=== PATIENT | male | born 1965 | race Caucasian/White ===

== ENCOUNTER 2022-08-17 13:35 | Emergency (ER) | payer OTHER, SELFPAY ==
--- NOTE | ~2022-08-17 | XR_ITS ---
EXAMINATION: XR FOREARM, LEFT CLINICAL INFORMATION: Left forearm soft tissue injury with chainsaw. COMPARISON: None TECHNIQUE: AP and lateral views of the left forearm were obtained. FINDINGS: Significant soft tissue deformity seen at the level the mid forearm. No radiopaque foreign body. The underlying radius and ulna are intact. There is no acute fracture or dislocation. The left wrist and elbow joints are intact without abnormality. XR/XR forearm LT 2V IMPRESSION: Significant soft tissue deformity in the mid forearm without acute underlying osseous abnormality.
--- NOTE | 2022-08-17 13:39 | ED.GENADULT ---
HPI - General Adult General Chief complaint: Extremity Injury, Upper <Loena Rasmussen MD - Last Filed: 08/17/22 13:42> Stated complaint: Chainsaw Lac <Leona Rasmussen MD - Last Filed: 08/17/22 13:42> Time Seen by Provider: 08/17/22 13:44 <Leona Rasmussen MD - Last Filed: 08/17/22 13:42> Source: patient and EMS <MESSI Machado - Last Filed: 08/17/22 18:05> Mode of arrival: EMS <MESSI Machado - Last Filed: 08/17/22 18:05> Limitations: no limitations <MESSI Machado - Last Filed: 08/17/22 18:05> History of Present Illness HPI narrative: Patient is a 57 year old assigned male at with no reported medical history presenting to the emergency department today with a left forearm laceration from a chainsaw. Patient states that he was attempting to cut a tree in his yard with a chainsaw when it jerked back and caught his left forearm. Patient states that he cannot extend his left pinky and he has numbness and tingling in his left hand. Patient denies any dizziness, lightheadedness, abdominal pain, nausea, vomiting, fever, chills, blurry vision, double vision, loss of vision, chest pain, difficulty breathing, shortness of breath, back pain, night sweats, pain with urination, increased urinary frequency, increased urinary urgency, blood in his urine or stool, syncope or a near syncopal episode, bowel incontinence, bladder incontinence, bowel retention, bladder retention, or any other complaints at this time. <MESSI Machado - Last Filed: 08/17/22 18:05> Onset (ago): minute(s) <MESSI Machado - Last Filed: 08/17/22 18:05> Location: left and upper extremity <MESSI Machado - Last Filed: 08/17/22 18:05> Radiation: non-radiation <MESSI Machado - Last Filed: 08/17/22 18:05> Severity: severe <MESSI Machado - Last Filed: 08/17/22 18:05> Severity scale (1-10): 10 <MESSI Machado - Last Filed: 08/17/22 18:05> Quality: aching <MESSI Machado - Last Filed: 08/17/22 18:05> Pain Consistency: constant <MESSI Machado - Last Filed: 08/17/22 18:05> Relieving factors: none <MESSI Machado - Last Filed: 08/17/22 18:05> Exacerbating factors: none <MESSI Machado - Last Filed: 08/17/22 18:05> Associated symptoms: denies other symptoms <MESSI Machado - Last Filed: 08/17/22 18:05> Treatments prior to arrival: none <MESSI Machado - Last Filed: 08/17/22 18:05> Related Data Home medications: Previous Rx's Medication Instructions Recorded cephalexin 500 mg capsule 500 mg PO Q6H 7 days #28 caps 08/17/22 <Leona Rasmussen MD - Last Filed: 08/17/22 13:42> Allergies/adverse reactions: Allergies Allergy/AdvReac Type Severity Reaction Status Date / Time No Known Allergies Allergy Verified 08/17/22 13:50 <Leona Rasmussen MD - Last Filed: 08/17/22 13:42> Review of Systems Constitutional: Constitutional: Reports no additional constitutional complaints, Denies chills, Denies fever(s) and Denies night sweats <MESSI Machado - Last Filed: 08/17/22 18:05> Eyes: Eyes: Reports no additional eye complaints, Denies blurry vision, Denies change in vision, Denies diplopia, Denies eye discharge, Denies loss of vision and Denies eye pain <MESSI Machado - Last Filed: 08/17/22 18:05> ENT: Denies dizziness <MESSI Machado - Last Filed: 08/17/22 18:05> Cardiovascular: Cardiovascular: Reports no additional cardiovascular complaints, Denies chest pain, Denies lightheadedness, Denies Loss of Consciousness and Denies dyspnea <MESSI Machado - Last Filed: 08/17/22 18:05> Respiratory: Respiratory: Reports no additional respiratory complaints and Denies dyspnea <MESSI Machado - Last Filed: 08/17/22 18:05> Gastrointestinal: Gastrointestinal: Reports no additional gastrointestinal complaints, Denies abdominal pain, Denies melena, Denies hematochezia, Denies change in bowel habits and Denies change in stool character <MESSI Machado - Last Filed: 08/17/22 18:05> Genitourinary: Genitourinary: Reports no additional male genitourinary complaints, Denies hematuria, Denies oliguria, Denies difficulty urinating, Denies dysuria, Denies urinary frequency, Denies urinary hesitancy, Denies urinary incontinence and Denies urinary urgency <MESSI Machado - Last Filed: 08/17/22 18:05> Musculoskeletal: Musculoskeletal: Reports no additional musculoskeletal complaints, Denies numbness and Denies tingling <MESSI Machado - Last Filed: 08/17/22 18:05> Comments: left forearm laceration <MESSI Machado - Last Filed: 08/17/22 18:05> Neurologic: Denies dizziness, Denies loss of vision, Denies numbness and Denies tingling <MESSI Machado - Last Filed: 08/17/22 18:05> Psychiatric: Psychiatric: Reports no additional psychiatric complaints <MESSI Machado - Last Filed: 08/17/22 18:05> Endocrine: Endocrine: Reports no additional endocrine complaints <MESSI Machado - Last Filed: 08/17/22 18:05> Hematologic/Lymphatic: Hematologic/Lymphatic: Reports no additional hematologic/lymphatic complaints <MESSI Machado - Last Filed: 08/17/22 18:05> Allergic/Immunologic: Allergic/Immunologic: Reports no additional allergic/immunologic complaints <MESSI Machado - Last Filed: 08/17/22 18:05> PMFSH Past Medical History Attestation statement: The following information was validated with the patient. <MESSI Machado - Last Filed: 08/17/22 18:05> Source: old records reviewed <MESSI Machado - Last Filed: 08/17/22 18:05> Social History Social History: Social History Advance Directives: No <Leona Rasmussen MD - Last Filed: 08/17/22 13:42> Physical Exam ED Vital Signs: Vital Signs - 24 hr 08/17/22 13:42 08/17/22 14:01 Pulse Rate 88 Respiratory Rate 24 H 18 Blood Pressure 107/70 Pulse Oximetry 98 Oxygen Delivery Method Room Air BMI result Body Mass Index 32.5 <Leona Rasmussen MD - Last Filed: 08/17/22 13:42> Vital Signs - 24 hr 08/17/22 13:42 08/17/22 14:01 Pulse Rate 88 Respiratory Rate 24 H 18 Blood Pressure 107/70 Pulse Oximetry 98 Oxygen Delivery Method Room Air BMI result Body Mass Index 32.5 <MESSI Machado - Last Filed: 08/17/22 18:05> Const General: cooperative, no acute distress, alert and awake <MESSI Machado - Last Filed: 08/17/22 18:05> Nutritional Appearance: well nourished <MESSI Machado - Last Filed: 08/17/22 18:05> Orientation/consciousness: patient oriented x3 <MESSI Machado - Last Filed: 08/17/22 18:05> Limitations: no limitations <MESSI Machado - Last Filed: 08/17/22 18:05> HENMT Head: Yes normal to inspection and Yes atraumatic <MESSI Machado - Last Filed: 08/17/22 18:05> Ears: hearing grossly normal bilaterally and external ears normal <MESSI Machado Last Filed: 08/17/22 18:05> General nose exam: Normal external nose present, no nasal discharge noted and no epistaxis <MESSI Machado - Last Filed: 08/17/22 18:05> Face and sinus: Yes normal facial exam, No abrasion and No laceration <MESSI Machado - Last Filed: 08/17/22 18:05> Mouth: Normal oral and palatal mucosa present, no drooling and no muffled voice <MESSI Machado - Last Filed: 08/17/22 18:05> Eyes General: appearance normal, both eyes and all related structures <MESSI Machado Last Filed: 08/17/22 18:05> Periorbital: periorbital findings normal <MESSI Machado Last Filed: 08/17/22 18:05> Eyelids: Yes eyelids normal <Zaynab Fong PA - Last Filed: 08/17/22 18:05> Conjunctivae: conjunctivae normal <Zaynab Fong PA - Last Filed: 08/17/22 18:05> Pupils: Equal, round and reactive pupils present <Zaynab Fong PA - Last Filed: 08/17/22 18:05> EOM: EOMs intact bilaterally <Zaynab Fong PA - Last Filed: 08/17/22 18:05> Neck Neck: Yes normal visual inspection, Yes full ROM and Yes no lymphadenopathy <Zaynab Fong PA - Last Filed: 08/17/22 18:05> Chest Chest palpation & inspection: normal inspection of the chest <Zaynab Fong CT - Last Filed: 08/17/22 18:05> Resp Effort & Inspection: normal respiratory effort and able to speak in complete sentences <Zaynab Fong CT - Last Filed: 08/17/22 18:05> Auscultation: clear to auscultation bilaterally <Zaynab Fong PA - Last Filed: 08/17/22 18:05> Cardio Rate: regular rate <Zaynab Fong PA - Last Filed: 08/17/22 18:05> Rhythm: regular rhythm <Zaynab Fong PA - Last Filed: 08/17/22 18:05> GI Inspection: Yes normal to inspection <Zaynab Fong CT - Last Filed: 08/17/22 18:05> Neuro General: patient oriented x3 and moves all extremities <Zaynab Fong PA - Last Filed: 08/17/22 18:05> Cranial nerves: Yes Equal, round and reactive pupils present <Zaynab Fong PA - Last Filed: 08/17/22 18:05> Cognition (Neuro): normal cognition <Zaynab FongMESSI - Last Filed: 08/17/22 18:05> Motor exam (neuro): 5/5 motor strength present throughout <Zaynab FongMESSI - Last Filed: 08/17/22 18:05> Sensory Exam: Normal double simultaneous stimulation for sensation <Zaynab Fong PA - Last Filed: 08/17/22 18:05> Coordination: [id number] test normal <MESSI Machado - Last Filed: 08/17/22 18:05> Extrem Other: <MESSI Machado - Last Filed: 08/17/22 18:05> General: No full ROM (cannot extend left 5th digit, numbness and tingling present to left hand) and Yes capillary refill normal <MESSI Machado - Last Filed: 08/17/22 18:05> Psych Appearance: grossly normal <MESSI Machado - Last Filed: 08/17/22 18:05> Mental Status: mental status grossly normal <MESSI Machado - Last Filed: 08/17/22 18:05> Affect: normal affect <MESSI Machado - Last Filed: 08/17/22 18:05> Attitude: cooperative <MESSI Machado - Last Filed: 08/17/22 18:05> Thought process: Normal thought process present <MESSI Machado - Last Filed: 08/17/22 18:05> Thought content: Normal thought content present <MESSI Machado - Last Filed: 08/17/22 18:05> Insight: Good insight present (Psych) <MESSI Machado - Last Filed: 08/17/22 18:05> Course Course Course Narrative: -triage -pt c/o lac with a chain saw for L forearm -pt pale, diaphoretic, likely vasovagal, lac is deep, minimal to moderate active bleeding, pt unwilling to try to open/close hand at this time -pt sent to [facility] [place] <Leona Rasmussen MD - Last Filed: 08/17/22 13:42> Medications Administered Discontinued Medications Generic Name Dose Route Start Last Admin Trade Name Freq PRN Reason Stop Dose Admin Diphtheria/Tetanus/Acell Pertussis 0.5 ml 08/17/22 14:01 08/17/22 14:28 Diphth,Pertus(Acell),Tet Adult 0.5 Ml Syringe IM 08/17/22 14:02 0.5 ml .ONCE ONE Administration Piperacillin Sod/Tazobactam 50 mls @ 100 mls/hr 08/17/22 13:50 08/17/22 15:29 Sod 3.375 gm/ Sodium Chloride IV 08/17/22 14:19 Infused ONCE ONE Infusion Sodium Chloride 1,000 mls @ 999 mls/hr 08/17/22 14:45 08/17/22 16:13 Ns IV 08/17/22 15:45 Infused .Q1H1M JANI Infusion Lidocaine HCl 20 ml 08/17/22 14:43 08/17/22 15:07 Lidocaine Hcl 1 % Mpf 5 Ml Vial SUBCUT 08/17/22 14:44 20 ml ONCE ONE Administration Morphine Sulfate 4 mg 08/17/22 13:50 08/17/22 14:01 Morphine Sulfate 4 Mg/Ml Cartridge IVPUSH 08/17/22 13:51 4 mg ONCE ONE Administration Protocol Ondansetron HCl 4 mg 08/17/22 13:50 08/17/22 13:58 Ondansetron Hcl 4 Mg/2 Ml Vial IVPUSH 08/17/22 13:51 4 mg ONCE ONE Administration <Leona Rasmussen MD - Last Filed: 08/17/22 13:42> Medications Administered Discontinued Medications Generic Name Dose Route Start Last Admin Trade Name Diogoq PRN Reason Stop Dose Admin Diphtheria/Tetanus/Acell Pertussis 0.5 ml 08/17/22 14:01 08/17/22 14:28 Diphth,Pertus(Acell),Tet Adult 0.5 Ml Syringe IM 08/17/22 14:02 0.5 ml .ONCE ONE Administration Piperacillin Sod/Tazobactam 50 mls @ 100 mls/hr 08/17/22 13:50 08/17/22 15:29 Sod 3.375 gm/ Sodium Chloride IV 08/17/22 14:19 Infused ONCE ONE Infusion Sodium Chloride 1,000 mls @ 999 mls/hr 08/17/22 14:45 08/17/22 16:13 Ns IV 08/17/22 15:45 Infused .Q1H1M JANI Infusion Lidocaine HCl 20 ml 08/17/22 14:43 08/17/22 15:07 Lidocaine Hcl 1 % Mpf 5 Ml Vial SUBCUT 08/17/22 14:44 20 ml ONCE ONE Administration Morphine Sulfate 4 mg 08/17/22 13:50 08/17/22 14:01 Morphine Sulfate 4 Mg/Ml Cartridge IVPUSH 08/17/22 13:51 4 mg ONCE ONE Administration Protocol Ondansetron HCl 4 mg 08/17/22 13:50 08/17/22 13:58 Ondansetron Hcl 4 Mg/2 Ml Vial IVPUSH 08/17/22 13:51 4 mg ONCE ONE Administration <MESSI Machado - Last Filed: 08/17/22 18:05> Procedures Laceration Laceration 1: Site: upper extremity <MESSI Machado - Last Filed: 08/17/22 18:05> Side (If applicable): left <MESSI Machado - Last Filed: 08/17/22 18:05> Size (cm): 8 <MESSI Machado - Last Filed: 08/17/22 18:05> Description: irregular and contaminated <MESSI Machado - Last Filed: 08/17/22 18:05> Depth: involves muscle layer and involves tendon <MESSI Machado - Last Filed: 08/17/22 18:05> Local Anesthetic: lidocaine 1% <MESSI Machado - Last Filed: 08/17/22 18:05> Amount of anesthesia used (mL): 20 <MESSI Machado - Last Filed: 08/17/22 18:05> Pre-repair: wound explored and irrigated extensively <MESSI Machado - Last Filed: 08/17/22 18:05> Skin layer closed with: other (prolene) <MESSI Machado - Last Filed: 08/17/22 18:05> Size (cm): 4-0 <MESSI Machado - Last Filed: 08/17/22 18:05> Number of sutures: 10 <MESSI Machado - Last Filed: 08/17/22 18:05> Technique: simple, interrupted <MESSI Machado - Last Filed: 08/17/22 18:05> Medical Decision Making MDM Narrative Medical decision making narrative: Patient is a 57 year old assigned male at with no reported medical history presenting to the emergency department today with a left forearm laceration. Patient's physical exam showed a large chainsaw laceration to the left forearm involving multiple layers with evidence of ulnar nerve involvement with decreased left 5th finger movement and sensation. Patient's blood work showed an elevated CR of 2.04 and after a liter of fluids, decreased to 1.52. Patient's left forearm x-ray showed no acute fredi process. I explained my physical exam findings as well as all test results to the patient and the patient's son. I answered all questions asked by the patient and the patient's son. I spoke with Dr. Loja who examined the patient and recommended that the patient have his outer most layer sutured closed and follow up in the office in the next 48 hours with possible surgery to be scheduled on of this week. Patient's laceration was repaired, without incident. I stressed the importance of the patient taking his medication as prescribed. I stressed the importance of the patient following up with his primary care provider and the orthopedic surgeon. I stressed the importance of the patient returning to the emergency department immediately if his symptoms were to worsen or if he were to develop any dizziness, shortness of breath, difficulty breathing, chest pain, blurry vision, loss of vision, nausea, vomiting, abdominal pain, fever, chills, back pain, or any other complaints. Patient and the patient's son verbalized agreement and understanding with this treatment plan and discharge. <MESSI Machado - Last Filed: 08/17/22 18:05> Medical Records Medical records reviewed: Yes I reviewed the patient's medical records. <MESSI Machado - Last Filed: 08/17/22 18:05> Lab Data Lab results reviewed: Yes I reviewed the patient's lab results. <MESSI Machado - Last Filed: 08/17/22 18:05> Result diagrams: : 08/17/22 13:58 08/17/22 17:30 <Leona Rasmussen MD - Last Filed: 08/17/22 13:42> Labs: Lab Results 08/17/22 08/17/22 08/17/22 Range/Units 13:58 13:58 17:30 WBC 10.9 H (4.8-10.8) X10*3/uL RBC 5.00 (4.60-5.80) X10*6/uL Hgb 15.1 (14.0-18.0) g/dl Hct 43.3 (42.0-52.0) % MCV 86.6 (80.0-98.0) fL MCH 30.2 (27.0-33.0) pg MCHC 34.9 (31.0-36.0) g/dl RDW 12.0 (11.0-16.0) % Plt Count 303 (160-400) X10*3/uL MPV 10.0 (9.4-12.4) fL Immature Gran % (Auto) 0.3 (0.0-0.4) % Neut % (Auto) 59.2 (45-73) % Lymph % (Auto) 31.4 (20-40) % Trego % (Auto) 7.6 (2-11) % Eos % (Auto) 1.0 (0-4) % Baso % (Auto) 0.5 (0-2) % Lymph # (Auto) 3.4 (1.2-4.9) X10*3/uL Trego # (Auto) 0.8 (0.1-1.2) X10*3/uL Eos # (Auto) 0.1 (0.0-0.4) X10*3/uL Baso # (Auto) 0.1 (0.0-0.2) X10*3/uL Abs Immat Gran (auto) 0.03 (0.00-0.03) X10*3/uL Absolute Neuts (auto) 6.5 (2.0-8.3) x10*3/uL Absolute Nucleated RBC 0.000 (0.0-0.012) X10*3/uL Nucleated RBC % (auto) 0.0 (0.0-0.2) /100WBC Sodium 145 142 (135-145) mmol/L Potassium 3.7 4.0 (3.3-5.1) mmol/L Chloride 109 H 107 (96-108) mmol/L Carbon Dioxide 17 L 21 L (22-29) mmol/L Anion Gap 23 H 18 (12-20) BUN 20 H 20 H (9-16) mg/dL Creatinine 2.04 H 1.52 H (0.5-1.4) mg/dL Estim Creat Clear Calc 45.1 60.5 Estimated GFR 34 48 Random Glucose 241 H 83 (60-115) mg/dL Calcium 10.1 9.7 (8.4-10.2) mg/dL Total Bilirubin 0.5 0.5 (0.0-1.0) mg/dL AST 20 24 (5-37) U/L ALT 26 26 (0-40) U/L Alkaline Phosphatase 41 39 (39-117) U/L Total Protein 7.1 6.8 (6.5-8.0) g/dL Albumin 4.6 4.4 (3.5-5.0) g/dL <Leona Rasmussen MD - Last Filed: 08/17/22 13:42> Lab Results 08/17/22 08/17/22 08/17/22 Range/Units 13:58 13:58 17:30 WBC 10.9 H (4.8-10.8) X10*3/uL RBC 5.00 (4.60-5.80) X10*6/uL Hgb 15.1 (14.0-18.0) g/dl Hct 43.3 (42.0-52.0) % MCV 86.6 (80.0-98.0) fL MCH 30.2 (27.0-33.0) pg MCHC 34.9 (31.0-36.0) g/dl RDW 12.0 (11.0-16.0) % Plt Count 303 (160-400) X10*3/uL MPV 10.0 (9.4-12.4) fL Immature Gran % (Auto) 0.3 (0.0-0.4) % Neut % (Auto) 59.2 (45-73) % Lymph % (Auto) 31.4 (20-40) % Trego % (Auto) 7.6 (2-11) % Eos % (Auto) 1.0 (0-4) % Baso % (Auto) 0.5 (0-2) % Lymph # (Auto) 3.4 (1.2-4.9) X10*3/uL Trego # (Auto) 0.8 (0.1-1.2) X10*3/uL Eos # (Auto) 0.1 (0.0-0.4) X10*3/uL Baso # (Auto) 0.1 (0.0-0.2) X10*3/uL Abs Immat Gran (auto) 0.03 (0.00-0.03) X10*3/uL Absolute Neuts (auto) 6.5 (2.0-8.3) x10*3/uL Absolute Nucleated RBC 0.000 (0.0-0.012) X10*3/uL Nucleated RBC % (auto) 0.0 (0.0-0.2) /100WBC Sodium 145 142 (135-145) mmol/L Potassium 3.7 4.0 (3.3-5.1) mmol/L Chloride 109 H 107 (96-108) mmol/L Carbon Dioxide 17 L 21 L (22-29) mmol/L Anion Gap 23 H 18 (12-20) BUN 20 H 20 H (9-16) mg/dL Creatinine 2.04 H 1.52 H (0.5-1.4) mg/dL Estim Creat Clear Calc 45.1 60.5 Estimated GFR 34 48 Random Glucose 241 H 83 (60-115) mg/dL Calcium 10.1 9.7 (8.4-10.2) mg/dL Total Bilirubin 0.5 0.5 (0.0-1.0) mg/dL AST 20 24 (5-37) U/L ALT 26 26 (0-40) U/L Alkaline Phosphatase 41 39 (39-117) U/L Total Protein 7.1 6.8 (6.5-8.0) g/dL Albumin 4.6 4.4 (3.5-5.0) g/dL <MESSI Machado - Last Filed: 08/17/22 18:05> Imaging Data Left forearm x-ray: Attestation: I personally reviewed and interpreted this imaging study as follows: <MESSI Machado - Last Filed: 08/17/22 18:05> My impression: No acute fredi process. <MESSI Machado - Last Filed: 08/17/22 18:05> Radiologist's impression: EXAMINATION: XR FOREARM, LEFT CLINICAL INFORMATION: Left forearm soft tissue injury with chainsaw.? COMPARISON: None? TECHNIQUE: AP and lateral views of the left forearm were obtained. FINDINGS: Significant soft tissue deformity seen at the level the mid forearm. No radiopaque foreign body. The underlying radius and ulna are intact. There is no acute fracture or dislocation. The left wrist and elbow joints are intact without abnormality. XR/XR forearm LT 2V IMPRESSION: Significant soft tissue deformity in the mid forearm without acute underlying osseous abnormality. Dictated By: Richar Jarrett MD Signed By: Electronically signed by Richar Jarrett MD 08/17/22 1512 <MESSI Machado - Last Filed: 08/17/22 18:05> Critical Care Time Critical Care Time Critical Care Time: Yes <MESSI Machado - Last Filed: 08/17/22 18:05> Total Critical Care Time: 45 <MESSI Machado - Last Filed: 08/17/22 18:05> Attestation: I spent 45 minutes of Critical Care Time with this patient. This does not include time spent on separately reported billable procedures. <MESSI Machado - Last Filed: 08/17/22 18:05> Discharge Plan Discharge Clinical Impression: Laceration of left forearm, Acute dehydration <Leona Rasmussen MD - Last Filed: 08/17/22 13:42> Patient Disposition: Home, Self-Care <Leona Rasmussen MD - Last Filed: 08/17/22 13:42> Instructions: Dehydration (ED), Laceration (ED) <Leona Rasmussen MD - Last Filed: 08/17/22 13:42> Additional Instructions: Your initial creatinine today was 2.04 and after 1 liter of fluids, it came down to 1.52. Continue to drink fluids and have your primary care provider follow up on your creatinine level. Follow up with your primary care provider and the orthopedic provider. Return to the emergency department immediately if your symptoms worsen or if you develop any dizziness, shortness of breath, difficulty breathing, chest pain, blurry vision, loss of vision, nausea, vomiting, abdominal pain, fever, chills, back pain, or any other complaints. <Leona Rasmussen MD - Last Filed: 08/17/22 13:42> Prescriptions: New cephalexin 500 mg capsule 500 mg PO Q6H 7 Days Qty: 28 0RF <Leona Rasmussen MD - Last Filed: 08/17/22 13:42> Referrals: [facility] [place] Family Medicine [Provider Group] (Call to establish and follow up with a primary care provider. If you already have a primary care provider, please follow up with them. ) [facility] [place] Primary Care, [place] [Provider Group] (Call to establish and follow up with a primary care provider. If you already have a primary care provider, please follow up with them. ) [facility] [place] Primary Care,[facility] [Provider Group] (Call to establish and follow up with a primary care provider. If you already have a primary care provider, please follow up with them. ) [facility] [place] [facility] [Provider Group] (Call to establish and follow up with Dr. Loja, the hand surgeon who saw you today. ) <Leona Rasmussen MD - Last Filed: 08/17/22 13:42> Stand Alone Forms: Work/School Release <Leona Rasmussen MD - Last Filed: 08/17/22 13:42> Print Language: Armenian <Leona Rasmussen MD - Last Filed: 08/17/22 13:42>
[2022-08-17 13:42] VITALS: BP 107/70; PULSE 88; RESP 24; O2SAT 98; BMI 32.5
[2022-08-17] MEDS: ondansetron HCL 4 MG/2 ML VIAL IVPUSH (13:58)
[2022-08-17 14:01] VITALS: RESP 18
[2022-08-17] MEDS: Morphine Sulfate 4 MG/ML CARTRIDGE IVPUSH (14:01)
[2022-08-17 14:04] LABS: MANUAL DIFF FLAG NO
[2022-08-17 14:06] LABS: Basophils Absolute Auto 0.1 X10*3/uL (0.0-0.2); Basophils Percent Auto 0.5 % (0-2); Eosinophils Absolute Auto 0.1 X10*3/uL (0.0-0.4); Hematocrit 43.3 % (42.0-52.0); Hemoglobin 15.1 g/dl (14.0-18.0); Imm Gran Abs Auto 0.03 X10*3/uL (0.00-0.03); Imm Gran Pct Auto 0.3 % (0.0-0.4); Lymphocytes Absolute Auto 3.4 X10*3/uL (1.2-4.9); Lymphocytes Percent Auto 31.4 % (20-40); Mean Corpuscular HGB Conc 34.9 g/dl (31.0-36.0); Mean Corpuscular Hemoglobin 30.2 pg (27.0-33.0); Mean Corpuscular Volume 86.6 fL (80.0-98.0); Monocytes Absolute Auto 0.8 X10*3/uL (0.1-1.2); Monocytes Percent Auto 7.6 % (2-11); Neutrophils Absolute Auto 6.5 x10*3/uL (2.0-8.3); Neutrophils Percent Auto 59.2 % (45-73); Platelet Count 303 X10*3/uL (160-400); White Blood Count 10.9 X10*3/uL (4.8-10.8)
[2022-08-17 14:28] LABS: Alanine Aminotransferase 26 U/L (0-40); Albumin Level 4.6 g/dL (3.5-5.0); Alkaline Phosphatase 41 U/L (39-117); Anion Gap 23 (12-20); Aspartate Amino Transferase 20 U/L (5-37); Bilirubin Total 0.5 mg/dL (0.0-1.0); Blood Urea Nitrogen 20 mg/dL (9-16); Calcium 10.1 mg/dL (8.4-10.2); Carbon Dioxide 17 mmol/L (22-29); Chloride 109 mmol/L (96-108); Creatinine Clr Calc Pharmacy 45.1; Estimated Glomerular Filt Rate 34; Glucose Random 241 mg/dL (60-115); Potassium 3.7 mmol/L (3.3-5.1); Sodium 145 mmol/L (135-145); Total Protein 7.1 g/dL (6.5-8.0)
[2022-08-17] MEDS: Diphth,Pertus(ACell),Tet Adult 0.5 ML SYRINGE IM (14:28)
[2022-08-17] MEDS: Piperacillin Sodium/Tazobactam 3.375 GM in 0.9 % Sodium Chloride 50 ML IV (14:49)
[2022-08-17] MEDS: Lidocaine HCl 1 % MPF 5 ML VIAL 20 ML SUBCUT (15:07)
[2022-08-17] MEDS: 0.9 % Sodium Chloride 1,000 ML 999 ML IV (15:07)
--- NOTE | 2022-08-17 15:12 | PM.CNOR ---
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 He was using a chain saw today when it got away from him and struck him in the left mid forearm. He complains of pain and a good-sized gash in the volar ulnar aspect of his left mid forearm. He also complains of some numbness in his hand. He is seen today with his young adult son. He denies having any heart, lung, kidney problems, asthma or diabetes. [facility] Social History Social History Advance Directives: No Meds Allergies Allergy/AdvReac Type Severity Reaction Status Date / Time No Known Allergies Allergy Verified 08/17/22 13:50 Active Medications: Current Medications Sodium Chloride (Ns) 1,000 mls @ 999 mls/hr IV .Q1H1M JANI Stop: 08/17/22 15:45 Last Admin: 08/17/22 15:07 Dose: 999 mls/hr Physical Exam Vital Signs: Vital Signs: Last Vital Signs Pulse 88 08/17/22 13:42 Resp 18 08/17/22 14:01 BP 107/70 08/17/22 13:42 Pulse Ox 98 08/17/22 13:42 O2 Del Method 08/17/22 13:42 BMI result Body Mass Index 32.5 Const: General: cooperative and healthy appearing Orientation/consciousness: oriented to person and oriented to place HEENT: Head: Yes normocephalic and Yes atraumatic Eyes: EOM: EOMs intact bilaterally Resp: Effort & Inspection: normal respiratory effort and able to speak in complete sentences Cardio: Jugular venous distension: no JVD Skin: General skin exam: turgor normal Rashes: no rashes Neuro: General: oriented to person and oriented to place Extrem: Other: Evaluation of Left Upper Extremity: He has got an approximately 10 cm long transverse laceration across the volar ulnar mid forearm. The ulnar half of the laceration appears to by a late the volar forearm fascia and likely the FCU muscle belly. No significant active bleeding his fingers are pink and warm. With encouragement I can get him to extend his fingers about 80% of the way before limited by pain in the forearm. However, he has more of an extensor lag in the ring and small fingers . he appears to have active FDP and FDS tendon function to all of the fingers and can bring his fingers closed to week fist. Sensation is intact and normal to the thumb index middle finger and radial half of the ring finger. He feels like the small finger ulnar half of the ring finger and ulnar aspect of the hand are asleep. When asked to finger cross on the left he could bring the middle and index fingers together but not fully cross them. This could also be the median innervated intrinsics at work. Radiographs: three views of the left forearm Show no fractures or dislocations.. There is clearly a soft tissue injury in the volar ulnar mid forearm. No foreign bodies are seen. Psych: Appearance: grossly normal Affect: normal affect Attitude: cooperative Results Labs Result Diagrams: 08/17/22 13:58 08/17/22 13:58 Labs: Abnormal lab results 08/17/22 08/17/22 Range/Units 13:58 13:58 WBC 10.9 H (4.8-10.8) X10*3/uL Chloride 109 H (96-108) mmol/L Carbon Dioxide 17 L (22-29) mmol/L Anion Gap 23 H (12-20) BUN 20 H (9-16) mg/dL Creatinine 2.04 H (0.5-1.4) mg/dL Random Glucose 241 H (60-115) mg/dL H & H 08/17/22 Range/Units 13:58 Hgb 15.1 (14.0-18.0) g/dl Hct 43.3 (42.0-52.0) % All other labs normal. Assessment and Plan (1) Laceration of left forearm: Status: Acute (2) Laceration of muscle of left forearm: Status: Acute (3) Laceration of ulnar nerve of left upper extremity at forearm level: Status: Acute Plan assessment and plan: 1. Left volar ulnar mid forearm laceration from a chainsaw 2. This appears to also involve the ulnar nerve at the mid forearm, and also the FCU muscle belly I educated the patient about this condition I discussed operative and non operative treatment options, and and recommending operative treatment for a washout, wound exploration, and likely microscopic repair /reconstruction of the ulnar nerve and other structures as necessary. He will be put on the OR schedule for me for later this week. This needs to go to the OR within the next few days The ED is going to wash out the wound and loosely close it, splint him and put him on some oral antibiotics. Procedures Date of Service Date of Service: 08/17/22
[2022-08-17 17:53] LABS: Alanine Aminotransferase 26 U/L (0-40); Albumin Level 4.4 g/dL (3.5-5.0); Alkaline Phosphatase 39 U/L (39-117); Anion Gap 18 (12-20); Aspartate Amino Transferase 24 U/L (5-37); Bilirubin Total 0.5 mg/dL (0.0-1.0); Blood Urea Nitrogen 20 mg/dL (9-16); Calcium 9.7 mg/dL (8.4-10.2); Carbon Dioxide 21 mmol/L (22-29); Chloride 107 mmol/L (96-108); Creatinine Clr Calc Pharmacy 60.5; Estimated Glomerular Filt Rate 48; Glucose Random 83 mg/dL (60-115); Sodium 142 mmol/L (135-145); Total Protein 6.8 g/dL (6.5-8.0)
== END 2022-08-17 18:34 | disposition home or self-care (01) ==
PROVIDERS: Physician Assistant Medical; Emergency Provider Emergency Medicine Emergency Medical Services
DX: S54.02XA Injury of ulnar nerve at forearm level, left arm, initial encounter (principal); S56.922A Laceration of unspecified muscles, fascia and tendons at forearm level, left arm, initial encounter; S51.812A Laceration without foreign body of left forearm, initial encounter; W29.3XXA Contact with powered garden and outdoor hand tools and machinery, initial encounter; E86.0 Dehydration; Y93.H9 Activity, other involving exterior property and land maintenance, building and construction; Y92.017 Garden or yard in single-family (private) house as the place of occurrence of the external cause; Y99.9 Unspecified external cause status
CPT/HCPCS: 12034; 29125; 36415; 73090; 80053; 85025; 90471; 90715; 96361; 96365; 96375; 99283; 99284; J2270; J2405; J2543

== ENCOUNTER 2022-08-20 06:04 | Day surgery (SDC) | payer OTHER, SELFPAY ==
--- NOTE | 2022-08-19 09:31 | HO.ANESPROP2 ---
Documented by User: Dianne Horta NP 08/19/22 09:33 HPI - Anesthesia Eval Consult details Narrative: 57yo M for Left I&D forearm, Ulna Nerve Repair Forearm, Fascia Muscle Repair Forearm PMFSH Active Problems Active Problems: All Active Problems (Updated 08/18/22 @ 00:02 by Nola Coelho) Laceration of ulnar nerve of left upper extremity at forearm level (Acute) Laceration of muscle of left forearm (Acute) Laceration of left forearm (Acute) Past Medical History Medical History (Updated 08/20/22 @ 08:50 by Dee Guerrier MD) Heartburn Surgical History Surgical History (Updated 08/20/22 @ 08:49 by Dee Guerrier MD) H/O colonoscopy Social History Social History Patient Tobacco Use Status: Never used Tobacco Second Hand Smoke Exposure: No Use of substances other than those prescribed or required for medical reasons: No Are you DNR?: No Advance Directives: No Advance Directives Information Provided: Yes Advance Directives on File: No Current occupation: construction self employed, rt hand Meds Allergies Allergy/AdvReac Type Severity Reaction Status Date / Time No Known Allergies Allergy Verified 08/18/22 12:59 Home Medications Medication Instructions Recorded Confirmed Last Taken Type hydrocortisone acetate 25 mg 25 mg PA BID 08/18/22 Unknown History rectal suppository (Anucort-HC) acetaminophen 650 mg tablet 650 mg PO Q6H PRN Pain 08/20/22 08/20/22 08/20/22 History omeprazole 20 mg capsule,delayed 20 mg PO DAILY 08/20/22 08/20/22 08/20/22 History release Exam Exam Date and Time: August 19, [id number] Pertinent Lab Results Pertinent Lab Results: Laboratory Tests 08/17/22 08/17/22 13:58 17:30 WBC 10.9 H Hgb 15.1 Hct 43.3 Plt Count 303 Sodium 142 Potassium 4.0 Chloride 107 Carbon Dioxide 21 L BUN 20 H Creatinine 1.52 H Assessment and Plan Assessment Anesthesia Assessment: Chart Reviewed Documented by User: Dee Guerrier MD 08/20/22 08:52 [facility] Past Medical History Medical History (Updated 08/20/22 @ 08:50 by Dee Guerrier MD) Heartburn Family History Family history of problems with anesthesia: No Surgical History Surgical History (Updated 08/20/22 @ 08:49 by Dee Guerrier MD) H/O colonoscopy History of Problems with Anesthesia: No Social History Social History Patient Tobacco Use Status: Never used Tobacco Second Hand Smoke Exposure: No Use of substances other than those prescribed or required for medical reasons: No Are you DNR?: No Advance Directives: No Advance Directives Information Provided: Yes Advance Directives on File: No Current occupation: construction self employed, rt hand Meds Allergies Allergy/AdvReac Type Severity Reaction Status Date / Time No Known Allergies Allergy Verified 08/18/22 12:59 Home Medications Medication Instructions Recorded Confirmed Last Taken Type hydrocortisone acetate 25 mg 25 mg PA BID 08/18/22 Unknown History rectal suppository (Anucort-HC) acetaminophen 650 mg tablet 650 mg PO Q6H PRN Pain 08/20/22 08/20/22 08/20/22 History omeprazole 20 mg capsule,delayed 20 mg PO DAILY 08/20/22 08/20/22 08/20/22 History release Exam Height,Weight and Vital Signs: Height 5 ft 8 in Weight 92.986 kg Vital Signs Temp Pulse Resp BP Pulse Ox O2 Del Method 08/20/22 06:35 97.4 F 68 16 132/92 H 97 Room Air Airway Mallampati Class: II TM Dist: >3cm Neck ROM: Full Loose/Missing/Broken Teeth: Yes (Missing molars. Denies broken or loose teeth) Heart: RRR Lungs: CTAB Assessment and Plan Assessment Anesthesia Assessment: Anesthesia Plan Discussed Final Anesthetic Review Family History of Problems with Anesthesia: No History of Problems with Anesthesia: No NPO: Yes ASA Class: II Final Preanesthetic Review: No Changes in Pt Med Stat, Meds/Allgs Chart Reviewed, Consent Obtained/Reviewed and Anes Risks/Benef Reviewed Patient Risk: Low Procedure Risk: Low Assessment/Block/Sedation in SS: Assess/Block/Sedation-SS Anesthetic Plan Anesthetic Plan: GA Disposition: Standard PACU
[2022-08-20] VITALS (11 sets, daily range): BP systolic 119–138; BP diastolic 66–92; PULSE 68–87; RESP 16–18; TEMP 36.3–36.9; O2SAT 91–97; BMI 31.1
--- NOTE | ~2022-08-20 | XR_ITS ---
EXAMINATION: XR FOREARM, LEFT CLINICAL INFORMATION: Incorrect count. COMPARISON: Left forearm radiographs dated 08/17/2022. TECHNIQUE: AP and lateral views of the left forearm were obtained. FINDINGS: Again seen is significant soft tissue deformity in the mid, lateral aspect of the forearm. No radiopaque foreign body in this region. The underlying radius and ulna are intact. A curvilinear radiopaque density overlies the soft tissues superficial to the first metacarpal. Mild to moderate triscaphe degenerative joint changes are seen. XR/XR forearm LT 2V IMPRESSION: 1. Significant soft tissue wound in the forearm as seen previously without associated radiopaque foreign body. No acute underlying osseous abnormality. 2. Curvilinear radiopaque density overlying the soft tissues superficial to the first metacarpal. This likely represents a radiopaque foreign body of indeterminate age. Correlate with physical exam and trauma history in this region. No acute underlying abnormality.
[2022-08-20] MEDS: Lactated Ringers 1,000 ML 100 ML IVCONT (06:36)
--- NOTE | 2022-08-20 12:59 | P.OP_ITS ---
Operative Note Operative Note Date of Service: 08/20/22 Narrative: Operative Note Narrative: Preop diagnosis: 1. Left volar forearm transverse laceration from a chainsaw, approximately 11 cm 2. Left ulnar nerve laceration Postop diagnosis: 1. Left volar forearm transverse laceration from a chainsaw, approximately 11 cm 2. Left ulnar nerve laceration? 3. Left flexor carpi ulnaris tendon and muscle belly laceration 4. Partial laceration of flexor digitorum superficialis to the ring finger, tendon and muscle belly 5. Partial laceration of flexor digitorum superficialis to the left middle finger, tendon and muscle belly 6. Laceration of palmaris longus Procedure: 1. Neurolysis of ulnar nerve in the mid forearm 2. Repair of ulnar nerve in the mid forearm using a conduit and loupe magnification, 1 cm gap 3. Repair of left flexor carpi ulnaris muscle and tendon in the forearm 4. Repair of left ring finger flexor digitorum superficialis tendon 5. Repair of left middle finger flexor digitorum superficialis tendon Surgeon: Mariela Loja MD Anesthesia: General Anesthesia Findings: large transverse forearm laceration is noted above. This included lacerations of the palmaris longus and FCU tendons and muscle bellies. The fascia was on injured over the FCR tendon and the FCR tendon and muscle belly were on injured. There was a partial laceration of the flexor digitorum superficialis muscle bellies with tendon involvement to the left ring and middle fingers. There appeared to be in injury to the ulnar artery in the zone of injury with some clotting evident in the area of injury. There was no bleeding from the artery. It Was not disturbed. the ulnar nerve was fully transected in the zone of injury and where it was directly adjacent to the ulnar artery. The nerve proximal to the laceration appear to be in pretty good condition. The nerve distal to the transection was more injured and required resection of approximately 5 mm. The flexor digitorum profundus did not appear to be injured. The wound appeared to be relatively clean and with no evidence of obvious infection Or debris. Implants: 5 mm inner diameter [employer] neuro flex nerve conduit. Tourniquet time: 120 minutes EBL: 5.0 ml Specimen: none Drains: None Complications: None Disposition: Brought to the recovery room in stable condition Plan: Follow-up in 10-14 days for wound check anticipate suture removal in 2-3 weeks depending on wound healing continue antibiotics until finished he should be placed in a short-arm cast with the wrist in perhaps 10 degrees of flexion. Indications: The patient is a [age] year old man with a change saw injury to the volar aspect of his left forearm deficient of ulnar nerve function . The risks and benefits of operative treatment, including but not limited to risk of damage to blood vessels, nerves, tendons, infection, recurrence, persistent pain or numbness, incomplete resolution of preoperative symptoms, or need for further surgery were discussed with the patient and they wished to p roceed with surgery. Procedure: Once consent was obtained patient was brought back to the operating suite and placed in the operating table in a supine position. . Perioperative antibiotics and anesthesia was administered by the anesthesia team. A tourniquet was applied to the proximal aspect of the left upper extremity and the limb was prepped and draped in a standard surgical fashion. The limb was elevated exsanguinated with Esmarch bandage and the tourniquet inflated to 250 mm of mercury for a total tourniquet time of 120 minutes. I made longitudinal incisions extending from the transverse laceration distally about 5 cm and proximally about 5 cm. This was done with a 15. Blade through the skin to the subcutaneous tissues. Then carefully dissected down to the level of the volar forearm fascia using tenotomy scissors. The volar forearm fascia was then incised longitudinally using tenotomy scissors. In evaluating the wound, it was clean and without evidence of gross infection or debris. it was approximately 11 cm in length and a little jagged, from the chain saw. The more radial aspect of the volar forearm fascia appeared to be intact. The underlying flexor carpi radialis tendon and muscle belly were on a jerk. The palmaris longus tendon was transected and then the laceration proceeded deeply in an ulnar direction. The flexor carpi ulnaris muscle belly and tendon were transected. There was a partial injury to the flexor digitorum superficialis involving the muscle bellies and then also the tendons to the ring and middle fingers. The ulnar nerve and artery were identified essentially deep to the flexor carpi ulnaris, just deep and ulnar to the flexor digitorum superficialis and superficial to the flexor digitorum profundus which did not appear to be injured. The ulnar nerve and artery were in direct contact with each other in this area. the ulnar artery was appreciated along its length. There was a clotted area in the zone of injury. As his hand has been well perfused I elected to leave this area alone so as not to disturb it. The ulnar Nerve was noted to be fully transected in the zone of injury. a neurolysis was performed mobilizing the ulnar nerve from the surrounding tissues including the ulnar artery for a distance of about 2 cm proximal and distal to the laceration site. This was done very carefully with tenotomy scissors. The wound was copiously irrigated with normal saline multiple times. Again the proximal end of the lacerated ulnar nerve appeared to be in fairly good condition and perhaps a mm was taken off this proximal and 2 fraction the nerve in preparation for repair. The more distal aspect of the transected ulnar nerve did not look as good. It was more contused and I needed to remove about 5 mm from this part of the ulnar nerve. I dropped the tourniquet at I believe 78 minutes just to be assured that we would not have any significant new bleeding from the ulnar artery. The ulnar artery appear to be doing well and without any significant bleeding. The limb was then again elevated exsanguinated the tourniquet again inflated before we began our nerve repair. I then chose a [employer] 5 mm inner diameter neuro flex nerve conduit. This was prepared as per instructions on the back table. I was able to cut it down to approximately 1.2 cm in length to bridge the gap without any tension. Using my loupes and micro instruments I then repaired 1st the proximal and into the neuro flex conduit using 7 0 Prolene suture. Taking care to properly orient the proximal and distal aspect of the ulnar nerve I then repaired the distal and of the ulnar nerve into the neuro flex conduit also using 7 0 Prolene suture. This appeared to be a good repair and without tension. I then turned my attention to the flexor carpi ulnaris tendon and muscle belly. I repaired the tendon using some 3-0 Ethibond suture material. This was done holding the wrist in a flexed position. We had a nice reapproximation of the cut tendon ends. I then repaired the flexor digitorum superficialis tendon to the ring finger as well as the flexor digitorum superficialis tendon to the middle finger, also with some 3-0 Ethibond suture and some 5 0 Prolene. These were partial injuries. I elected not to repair the palmaris longus tendon as it was not necessary and the proximal end of the palmaris longus was not identifiable, and would have required extending the incision proximally to find it. Once satisfied with my repairs the wound was again copiously irrigated with normal saline. The skin and subcutaneous edges were debrided of any nonviable tissue. At this point the tourniquet was deflated and hemostasis obtained with a brief period of local pressure and bipolar electrocautery. The wound was copiously irrigated with normal saline. The subcutaneous layer was closed with 4-0 Vicryl suture, and the skin edges were reapproximated with 4-0 nylon suture. The wound was infiltrated with some 0.5% plain ropivacaine for postop pain control and a sterile dressing and a dorsal blocking splint holding the wrist in about 15 degrees of flexion was placed. The patient appears to have tolerated the procedure well and with no complications. All digits were well vascularized conclusion of the case.
--- NOTE | 2022-08-20 12:59 | MHC.SHP ---
Pre-Procedural Eval Section A Date of Service: 08/20/22 The patient is an INPATIENT: No Changes since office visit: No Cold of Flu in the past 2 weeks, No New Medical Problems, No Changes in Medication and No Patient answered all questions The History & Physical has been completed within 30 days and I have reviewed it.: Yes Section B Chief Complaint: laceration of forearm Allergies: Allergies Allergy/AdvReac Type Severity Reaction Status Date / Time No Known Allergies Allergy Verified 08/18/22 12:59 Plan I have reviewed the history and physical and performed a pertinent physical examination on my patient. No changes have occurred unless specified.
[2022-08-20] MEDS: oxyCODONE HCl Immed Release 5 MG TABLET PO (13:17)
[2022-08-20] MEDS: Ondansetron ODT 4 MG TAB.RAPDIS TRANSLINGU (14:25)
--- NOTE | 2022-08-20 14:37 | PC.NURSE ---
PATIENT GIVEN ZOFRAN SL PRIOR TO DISCHARGE FOR NAUSEA. PATEINT STATES FEELING BETTER AFTER VOMITING AND RECEIVING ZOFRAN.
== END 2022-08-20 14:45 | disposition home or self-care (01) ==
PROVIDERS: Visit Provider Orthopaedic Surgery
PROC: (CPT 64910; principal; 2022-08-20 07:30)
PROC: (CPT 64910; 2022-08-20 07:30)
PROC: (CPT 64910; 2022-08-20 07:30)
DX: S51.812A Laceration without foreign body of left forearm, initial encounter (principal); S54.02XA Injury of ulnar nerve at forearm level, left arm, initial encounter; S66.121A Laceration of flexor muscle, fascia and tendon of left index finger at wrist and hand level, initial encounter; R20.0 Anesthesia of skin; R20.2 Paresthesia of skin; W29.3XXA Contact with powered garden and outdoor hand tools and machinery, initial encounter; Y93.H3 Activity, building and construction; Y92.69 Other specified industrial and construction area as the place of occurrence of the external cause; Y99.0 Civilian activity done for income or pay; R12 Heartburn; Z79.899 Other long term (current) drug therapy
CPT/HCPCS: 64910; 64718; 64727; 25260 ×3; 73090; C9355; J0690; J1100; J1170; J2250; J2405; J2795; J3010

== ENCOUNTER → 2022-09-23 12:06 | Outpatient (BNVA) | payer OTHER, SELFPAY | PROVIDERS: Visit Provider Orthopaedic Surgery | DX: S51.812A Laceration without foreign body of left forearm, initial encounter (principal) ==

== ENCOUNTER 2022-10-08 13:00 | Outpatient (RCR) | payer OTHER, SELFPAY ==
--- NOTE | 2022-09-03 07:05 | MHC.OT.EP ---
[address] [phone] Occupational Therapy Plan of Care Date of Evaluation: 09/02/22 Diagnosis: Left ulnar nerve laceration and repair Left mid forearm FCU and FDS laceration and repair Assessment: 57 yo male was trimming trees, chainsaw slipped and laceration to left forearm occurred. He was brought to the ED and assessed by Dr Loja, scheduled for I&D and repair. 08/20/22 he underwent I&D w/ ulnar nerve repair at mid forearm and FDS and FCU tendon/muscle repair. He has been seen by Dr Loja today for two week post-op follow up, sutures removed, dorsal block splint placed w/ digits free and referred to OT for custom block orthosis. We assessed him in hand therapy today, fabricated dorsal block orthosis w/ wrist to neutral and digits free. He has been educated on repair protection and has good understanding not to extend wrist past neutral. He states he has been educated on digit ROM exercises and we have reinforced in therapy today and given handout for digit ROM/tendon glides, advising submaximal digit composite extension. We will continue OT services here at [facility] [place], he will be traveling and has limited insurance visits, but is motivated and encouraged w/ current state. Frequency and Duration: The patient will be seen ESCOBAR Blake/Ashley LOWERY Short Term Goals: Ind w/ orthosis wear Good follow through w/ wound/incision cleanliness Pt to demo good understanding w/ initiation of soft tissue management/scar management Pt to demo active digit range tip-palm Penal Officer Goals: Wean from orthosis wear Full active digit flex and ext Full active wrist ROM all planes WNL Pt to demo light functional use of left hand w/ bimanual activities Ind w/ ulnar nerve re-ed Treatment Plan: Therapeutic Exercise Therapeutic Activity Home Exercise Program Splinting Neuro Re-ed Patient Education Desensitization/Sensory Re-ed Edema Control ADL Training Ultrasound Paraffin Fluidotherapy MHP Soft Tissue Mobilization Kinesiotaping Electronically Signed By: ESCOBAR Blake/Ashley LOWERY Please Sign and return to therapist. Thank you once again for your referral.
--- NOTE | 2022-09-17 12:34 | MHC.OT.OP ---
[address] [phone] F: [phone] Occupational Therapy Progress Note Diagnosis: Left ulnar nerve laceration and repair Left mid forearm FCU and FDS laceration and repair Date of Surgery: 08/20/22 Date of Evaluation: 09/02/22 Treatments to Date: 2 Cancellations to Date: No Shows to Date: Subjective: Pt reports missing last appointment due to a schedule conflict. Removing DBS when sitting around the house Pain Score: Pain Location: No c/o pain Objective Measures: 2 PD ulnar hand and ulnar forearm 1 pt and moving touch only Hot/cold discrimination impaired MMT thumb add Fair, dorsal interossi Trace,palmar interossi Trace, lumbricals Trace Status: Assessment: Pt reports compliance with his HEP. Pt educated on precautions, scar massage, and ther ex Significant motor and sensory impairments as noted above Slight clawing noted today , not noted on eval. Pt will benefit from a anti claw orthosis after he weans from the DBS ~ at wk 6 with MD authorization Short Term Goals: Ind w/ orthosis wear Good follow through w/ wound/incision cleanliness Pt to demo good understanding w/ initiation of soft tissue management/scar management Pt to demo active digit range tip-palm Social Work Program Coordinator Goals: Wean from orthosis wear Full active digit flex and ext Full active wrist ROM all planes WNL Pt to demo light functional use of left hand w/ bimanual activities Ind w/ ulnar nerve re-ed Frequency and Duration: The patient will be seen 2 visits over 3 wks Treatment Plan: Therapeutic Exercise Home Exercise Program Patient Education Pt insurance is limiting him to 4 OT appointments total Electronically Signed By: Bonnie Mack OT CHT CLT Reviewed/agree with student documentation: Therapist:
--- NOTE | 2022-10-08 14:06 | MHC.OT.DC ---
[address] [phone] F: [phone] Occupational Therapy Discharge Note Provider: Dr Mariela Loja Diagnosis: Left ulnar nerve laceration and repair Left mid forearm FCU and FDS laceration and repair Date of Surgery: 08/20/22 Date of Evaluation: 09/02/22 Date of Discharge: 10/08/22 Treatments to Date: 4 No Shows to Date: 2 Discharge Status: Independent with HEP Patient Elected to Stop Discharge Summary: Jim is now 7 wks s/p traumatic right forearm laceration with FCU, FDS and ulnar nerve repair. He is doing well and we have discharged orthosis today. He has good wrist ROM, about 10 degrees limited from non-injured dominant right hand, but digit range looks good. Pt has weakness in intrinsics and limited digit abd/add and lumbricals, but has god understanding of exercises and activities for neuro re-ed. He plans to follow up with more local hand clinic (lives >2 hrs from [place]) in the next week. He has another follow up w/ Dr Loja end of October. Electronically Signed By: Rena Castañeda, OTR/L CHT Please Sign and return to therapist, thank you for your referral.
== END 2022-10-08 14:07 | disposition home or self-care (01) ==
LOC: HO.OT 13:00
PROVIDERS: Visit Provider Orthopaedic Surgery
DX: S54.02XA Injury of ulnar nerve at forearm level, left arm, initial encounter (principal); S56.922A Laceration of unspecified muscles, fascia and tendons at forearm level, left arm, initial encounter; S51.812A Laceration without foreign body of left forearm, initial encounter
CPT/HCPCS: 29125; 97110; 97112; 97140; 97166; 97760

== ENCOUNTER → 2022-10-27 10:16 | Outpatient (BNVA) | payer OTHER, SELFPAY | PROVIDERS: Visit Provider Orthopaedic Surgery | DX: Z13.89 Encounter for screening for other disorder (principal) ==

== ENCOUNTER → 2022-12-22 10:38 | Outpatient (BNVA) | payer OTHER, SELFPAY | PROVIDERS: Visit Provider Orthopaedic Surgery | DX: Z13.89 Encounter for screening for other disorder (principal) ==

== ENCOUNTER 2023-05-25 12:31 | Outpatient (AMB) | payer SELFPAY ==
--- NOTE | 2023-05-25 12:52 | A.OFFVIS_ITS ---
Intake Vital Signs 05/25/23 12:53 Height 5 ft 8 in Weight 210 lb BMI 31.9 Intake Visit Reasons: OV - L Forearm I&D, Ulnar Repair 08/20/22 AR Intake Note: Jim is a 57 year old male who presents today for a follow up of left forearm I&D with ulnar nerve repair in the mid forearm using a nerve conduit DOI 08/20/22 to re-assess sensation and motor function improvement. Patient reports he feels a vibration by his ulna nerve. Allergies No Known Allergies Allergy (Verified 05/25/23 12:58) HPI OV - L Forearm I&D, Ulnar Repair 08/20/22 AR HPI Details Jim is a 57 year old right hand dominant man who presents S/P: 1. Neurolysis of ulnar nerve in the mid forearm 2. Repair of ulnar nerve in the mid forearm using a conduit and loupe magnification, 1 cm gap 3. Repair of left flexor carpi ulnaris muscle and tendon in the forearm 4. Repair of left ring finger flexor digitorum superficialis tendon 5. Repair of left middle finger flexor digitorum superficialis tendon DOS: 08/20/22 chain saw to the forearm injury He is here for an evaluation of his ulnar nerve function. He is able to make a fist and extend all his digits without pain. he says he feels a vibrating sensation near the ulnar nerve at his elbow. Compared with his last visit he says that he now has tingling sensation that extends all the way down the ulnar aspect of his hand to the tip of the small finger. He says that he now can feel when he touches the ulnar aspect of the hand and the small finger. He says while it is not normal sensation it is a sensation that was not there before. 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 [facility] Medical History Heartburn Surgical History H/O colonoscopy Social History Patient Tobacco Use Status: Never used Tobacco Second Hand Smoke Exposure: No Current occupation: construction self employed, rt hand Review of Systems Const All systems reviewed & are unremarkable except as noted in HPI and below Physical Exam Vital Signs: BMI result Body Mass Index 31.9 Const General: cooperative, healthy appearing and no acute distress Orientation/consciousness: patient oriented x3 HEENT Head: Yes normocephalic and Yes atraumatic Eyes EOM: EOMs intact bilaterally Resp Effort & Inspection: normal respiratory effort and able to speak in complete sentences Cardio Jugular venous distension: no JVD Skin General skin exam: turgor normal Rashes: no rashes Neuro General: patient oriented x3 Extrem Other: Evaluation of Left Upper Extremity: The patient is alert, oriented, and in no acute distress Neuro: He now has sensation to light touch along ulnar border of hand, extending to the tip of small finger. This is new and he reports this as a tingling sensation. Normal sensation in the median and radial nerve distributions. He feels like he can tap the Tinel's sign from his mid forearm down into hypothenar aspect of hand and feels it is moved distally We see significant intrinsic wasting, hypothenar wasting, loss of first dorsal interosseous, and flattening of the palm He has incomplete extension of the ring and small fingers, still supple and can be passively brought into extension + Froment's sign Vascular: Cap refill brisk. His laceration and surgical incisions are all well-healed He has good FDS and FDP tendon function to all fingers He can make a tight fist with goo strength and extend all his digits He is developing a claw deformity as he has incomplete extension of ring and small finger PIP joints He can passively bring these fingers straight Psych Appearance: grossly normal Affect: normal affect Attitude: cooperative Assessment & Plan Assessment & Plan (1) Laceration of ulnar nerve of left upper extremity at forearm level: Code(s): S54.02XA - Injury of ulnar nerve at forearm level, left arm, initial encounter (2) Laceration of left forearm: Code(s): S51.812A - Laceration without foreign body of left forearm, initial encounter (3) Laceration of muscle of left forearm: Code(s): S56.922A - Laceration of unspecified muscles, fascia and tendons at forearm level, left arm, initial encounter Plan Assessment & plan: 1. Left mid-forearm laceration from a chainsaw, S/P a. Neurolysis of ulnar nerve in the mid forearm b. Repair of ulnar nerve in the mid forearm using a conduit and loupe magnification, 1 cm gap c. Repair of left flexor carpi ulnaris muscle and tendon in the forearm d. Repair of left ring finger flexor digitorum superficialis tendon e. Repair of left middle finger flexor digitorum superficialis tendon DOI: 08/17/22, involving the ulnar nerve DOS: 08/20/22 The patient appears to be doing well post-operatively. I am encouraged by seeing improved sensation to light touch along ulnar border of hand, extending to the tip of small finger I again discussed the recovery process for his ulnar nerve function. He does understand that it will be some time before we know if and how much recovery he gets of his ulnar nerve function. As expected, we are seen evidence of intrinsic wasting. Has we are now starting to see some improvement in sensation, I am hopeful that we can eventually start seeing some recovery of motor function. He will follow up in 2-3 months No need for a NCS as we are seeing some improvement in sensation and motor function Scribed for Mariela Loja MD by Octavio Tineo, medical attendant, on 05/25/23 at 1:25 PM, EST. Coding Level of Care Code Est Pt Level 3 (38411) Diagnoses Laceration of ulnar nerve of left upper extremity at forearm level S54.02XA Laceration of left forearm S51.812A Laceration of muscle of left forearm S56.922A
[2023-05-25 12:53] VITALS: BMI 31.9
== END 2023-05-25 13:46 | disposition home or self-care (01) ==
PROVIDERS: Visit Provider Orthopaedic Surgery
DX: S54.02XA Injury of ulnar nerve at forearm level, left arm, initial encounter (principal); S51.812A Laceration without foreign body of left forearm, initial encounter; S56.922A Laceration of unspecified muscles, fascia and tendons at forearm level, left arm, initial encounter
CPT/HCPCS: 99213

== ENCOUNTER → 2023-05-25 12:31 | Outpatient (BNVA) | payer OTHER, SELFPAY | PROVIDERS: Visit Provider Orthopaedic Surgery ==